=== PATIENT | male | born 1945 | race Caucasian/White ===

== ENCOUNTER 2019-12-19 05:56 | Day surgery (SDC) | payer OTHER ==
[~2019-12-19 05:56] MED LIST: ACID REDUCER20 M1 PO; CALCIUM PO; FOSAMAX70 MG PO; PEPCID AC10 MG PO; PROPECIA1 MG PO; SIMVASTATIN40 MG PO; TAMS0.4C PO; VITAMIN C PO
[2019-12-19] MEDS ORDERED: SURFAK240 M1 PO (09:03)
[2019-12-19] MEDS ORDERED: POLY119PG PO (09:03)
[2019-12-19] MEDS ORDERED: ULTRACET PO (09:03)
== END 2019-12-19 12:45 | disposition home or self-care (01) ==
LOC: CIR.AMB 05:56 → EDBD 08:30 → CIR.AMB 08:30
PROVIDERS: ATTEND Surgery
DX: K80.10 Calculus of gallbladder with chronic cholecystitis without obstruction (principal); K42.9 Umbilical hernia without obstruction or gangrene